=== PATIENT | female | born 1945 | race Caucasian/White ===

== ENCOUNTER 2016-07-20 07:32 | Day surgery (SDC) | payer MEDICARE, BC ==
[~2016-07-20] VITALS: Ht 162.6 cm; Wt 56.3 kg
== END 2016-07-20 14:10 | disposition home or self-care (01) ==
LOC: RAD.S 07:32 → EDSTATUS 09:00 → RAD.S 14:10
PROC: 0BBF3ZX Excision of Right Lower Lung Lobe, Percutaneous Approach, Diagnostic (ICD-10-PCS; principal; 2016-07-20)
DX: C34.91 Malignant neoplasm of unspecified part of right bronchus or lung (principal); C25.0 Malignant neoplasm of head of pancreas; C79.9 Secondary malignant neoplasm of unspecified site; J93.9 Pneumothorax, unspecified; I10 Essential (primary) hypertension; Z88.0 Allergy status to penicillin; Z88.6 Allergy status to analgesic agent; Z91.040 Latex allergy status